=== PATIENT | male | born 1995 | race Caucasian/White ===

== ENCOUNTER 2023-03-28 12:56 | Emergency (ER) | payer OTHER, SELFPAY ==
--- NOTE | ~2023-03-28 | XR_ITS ---
XR knee LT min 4V 03/28/2023 15:05 Indication: Left knee pain Procedure: 4 views left knee Comparison: No prior studies for comparison. Findings: There is anatomic alignment. No fracture or traumatic malalignment. Small knee effusion. Impression: 1: Small knee effusion. Reviewed, dictated and finalized at location A. [employer] Impression: 1: Small knee effusion.
[2023-03-28 13:12] VITALS: BP 133/77; PULSE 101; RESP 16; TEMP 37.1; O2SAT 99
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
== END 2023-03-28 15:33 | disposition home or self-care (01) ==
PROVIDERS: Emergency Provider Nurse Practitioner Family
DX: S83.92XA Sprain of unspecified site of left knee, initial encounter (principal); W50.0XXA Accidental hit or strike by another person, initial encounter; M25.462 Effusion, left knee
CPT/HCPCS: 73564; 99203; G0463